=== PATIENT | male | born 1980 | race Caucasian/White ===

== ENCOUNTER 2022-12-26 16:24 | Outpatient (CLI) | payer OTHER, SELFPAY | END 2022-12-26 16:25 | disposition home or self-care (01) | PROVIDERS: PCP Family Medicine; Visit Provider Family Medicine | DX: Z13.6 Encounter for screening for cardiovascular disorders (principal); Z13.29 Encounter for screening for other suspected endocrine disorder; Z13.9 Encounter for screening, unspecified | CPT/HCPCS: 80048; 80061; 84443 ==

== ENCOUNTER 2024-04-17 17:09 | Outpatient (REF) | payer OTHER, SELFPAY ==
[2024-04-17 18:17] LABS: Basophils Absolute Auto 0.03 K/uL (0.00-0.30); Basophils Percent Auto 0.3 % (0.0-3.0); Eosinophils Absolute Auto 0.09 K/uL (0.00-0.50); Eosinophils Percent Auto 0.9 % (0.0-7.0); Hematocrit 43.1 % (37.0-53.0); Hemoglobin* 14.7 gm/dL (13.5-17.5); Immature Granulocytes Abs Auto 0.01 K/uL (0.00-0.30); Immature Granulocytes Pct Auto 0.1 %; Lymphocytes Percent Auto 17.8 % (20-44); Mean Corpuscular HGB Conc 34 gm/dL (32-36); Mean Corpuscular Hemoglobin 31 pg (26-34); Mean Corpuscular Volume 90 fL (80-100); Neutrophils Percent Auto 74.9 % (42.0-72.0); Platelet Count* 216 K/uL (140-440); RDW Coefficient of Variation % 12.5 % (11.5-15.5); Red Blood Count 4.78 m/uL (4.30-5.90); White Blood Count* 10.18 K/uL (4.50-11.00)
[2024-04-17 18:25] LABS: Slide Review Reflex No
[2024-04-17 18:36] LABS: Alanine Aminotransferase* 25 U/L (4-50); Aspartate Amino Transferase* 24 U/L (12-35); Blood Urea Nitrogen* 21 mg/dL (5-24); Creatinine* 1.3 mg/dL (0.5-1.5); Estimated Glomerular Filt Rate 69 ml/min
== END 2024-04-17 17:10 | disposition home or self-care (01) ==
LOC: NPINS 17:09
PROVIDERS: PCP Family Medicine; Visit Provider Physician Assistant
DX: Z79.899 Other long term (current) drug therapy (principal)
CPT/HCPCS: 82565; 84450; 84460; 84520; 85025

== ENCOUNTER 2024-11-26 08:35 | Outpatient (CLI) | payer OTHER, SELFPAY | END 2024-11-26 08:36 | disposition home or self-care (01) | PROVIDERS: PCP Family Medicine; Visit Provider Family Medicine | DX: E78.2 Mixed hyperlipidemia (principal); R03.0 Elevated blood-pressure reading, without diagnosis of hypertension; M10.9 Gout, unspecified | CPT/HCPCS: 80048; 80061; 85025 ==

== ENCOUNTER 2025-01-30 08:52 | Outpatient (CLI) | payer OTHER, SELFPAY ==
--- NOTE | 2025-01-30 09:44 | P.ANES_ITS ---
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
--- NOTE | 2025-01-30 09:44 | W.ANESCHARGE ---
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
== END 2025-01-30 08:53 | disposition home or self-care (01) ==
LOC: OP CLINIC 08:53
PROVIDERS: PCP Family Medicine; Visit Provider Internal Medicine
DX: Z12.11 Encounter for screening for malignant neoplasm of colon (principal); K57.30 Diverticulosis of large intestine without perforation or abscess without bleeding; K52.89 Other specified noninfective gastroenteritis and colitis
CPT/HCPCS: 00811; 00812; 45380; 88305; 88342; J2704